=== PATIENT | male | born 1995 | race Caucasian/White ===

== ENCOUNTER → 2016-04-02 | Outpatient (CLI) | payer SELFPAY ==
[~2016-04-02] MED LIST: AMOXICILLIN 8751 TAB PO; CENTRUM1 TA1; NORCO 325 MG-51 TAB PO; WELLBUTRIN SR150 M1 PO; ZOLOFT 100MG100 MG PO; ZYRTEC ALLERGY10 MG PO
== END ==
LOC: ZCOL.LAB 01:24
DX: Z01.89 Encounter for other specified special examinations (principal)

== ENCOUNTER 2016-06-08 17:21 | Emergency (ER) | payer BC ==
[~2016-06-08] VITALS: Ht 177.8 cm; Wt 86.4 kg
[2016-06-08 17:34] VITALS: BP 121/71; TEMP 98.2
[2016-06-08] MEDS ORDERED: CENTRUM1 TA1 (17:37)
[2016-06-08] MEDS ORDERED: ZOLOFT 100MG100 MG PO (17:37)
[2016-06-08] MEDS ORDERED: ZYRTEC ALLERGY10 MG PO (17:37)
[2016-06-08] MEDS ORDERED: WELLBUTRIN SR150 M1 PO (17:37)
[2016-06-08] MEDS ORDERED: AMOXICILLIN 8751 TAB PO (18:15)
[2016-06-08] MEDS ORDERED: NORCO 325 MG-51 TAB PO (18:15)
[2016-06-08 18:43] VITALS: PULSE 66
== END 2016-06-08 18:45 | disposition home or self-care (01) ==
LOC: COL.ER 17:21
DX: S01.511A Laceration without foreign body of lip, initial encounter (principal); S00.81XA Abrasion of other part of head, initial encounter; X58.XXXA Exposure to other specified factors, initial encounter